=== PATIENT | male | born 1965 | race Caucasian/White ===

== ENCOUNTER 2020-12-12 00:06 | Emergency (ER) | payer OTHER ==
[~2020-12-12] VITALS: Ht 170.1 cm; Wt 70.3 kg
[~2020-12-12 00:06] MED LIST: BENTYL10 MG PO; VICODIN 5/500 505 MG PO; ZOFRAN ODT4 MG SL
[2020-12-12 00:52] LABS: BASO % 0.5 % (0.0-1.0); EOS # 0.1 10*3/uL (0.0-0.4); EOS % 0.8 % (1.0-4.0); HEMATOCRIT 46.7 % (42.0-52.0); LYMPH # 1.8 10*3/uL (1.3-4.4); LYMPH % 24.6 % (27.0-41.0); MEAN CELL VOLUME 96.1 fl (80.0-94.0); MEAN CORPUSCULAR HGB 32.5 pg (27.0-31.0); MEAN CORPUSCULAR HGB CONC 33.8 g/dl (33.0-37.0); MEAN PLATELET VOLUME 9.3 fl (9.6-12.3); MONO # 0.6 10*3/uL (0.1-1.0); MONO % 8.2 % (3.0-9.0); NEUT # 4.8 10*3/uL (2.3-7.9); NEUT % 65.4 % (47.0-73.0); PLATELET COUNT AUTOMATED 273 10*3/uL (130-400); RED BLOOD COUNT 4.86 10*6/uL (4.50-5.90); RED CELL DISTRI WIDTH 14.5 % (0-14.5); WHITE BLOOD COUNT 7.4 10*3/uL (4.8-10.8)
[2020-12-12 01:07] LABS: ALBUMIN 4.1 gm/dl (3.1-4.5); ALKALINE PHOSPHATASE 83 U/L (45-117); BUN 5 mg/dl (7-24); CHLORIDE 106 mmol/L (98-107); CREATININE 0.82 mg/dL (0.70-1.30); SGOT/AST 27 IU/L (3-35); SGPT/ALT 20 U/L (12-78); SODIUM 142 mmol/L (136-145)
[2020-12-12 01:08] LABS: ACETAMINOPHEN (TYLENOL) < 5.0 ug/ml (10-30)
[2020-12-12 02:54] LABS: BILIRUBIN Negative (Negative); BLOOD 1+ (Negative); CLARITY Clear (Clear); COLOR Yellow (Yellow); GLUCOSE Negative (Negative); KETONE Negative (Negative); LEUKO ESTERASE Negative (Negative); NITRITE Negative (Negative); SPECIFIC GRAVITY <= 1.005 (1.001-1.030); UROBILINOGEN 0.2 E.U./dl (0.0-1.0)
[2020-12-12 03:03] LABS: URINE AMPHETAMINES < 1000 (1000ng/ml); URINE BARBITURATES < 200 (200ng/ml); URINE BENZODIAZEPINES < 200 (200ng/ml); URINE CANNABINOIDS (THC) > 50 (50ng/ml); URINE COCAINE < 300 (300ng/ml); URINE METHADONE < 300 (300ng/ml); URINE OPIATES < 300 (300ng/ml)
[2020-12-12 03:15] LABS: WBC 0-2 wbc/hpf (0-5)
[2020-12-12 03:16] LABS: URINE PHENCYCLIDINE < 25 (25ng/ml)
[2020-12-12] MEDS ORDERED: CRESTOR10 M1 PO (17:35)
[2020-12-12] MEDS ORDERED: B-121000 MCG PO (17:37)
[2020-12-12] MEDS ORDERED: VITAMIN D325 MCG PO (17:38)
[2020-12-12] MEDS ORDERED: LISINOPRIL20 MG PO (17:38)
[2020-12-12] MEDS ORDERED: HYDR25T PO (17:38)
[2020-12-13] MEDS ORDERED: NORVASC5 MG PO (11:09)
== END 2020-12-12 11:12 | disposition home or self-care (01) ==
LOC: ED 00:06
PROVIDERS: Emergency Medicine
DX: F43.10 Post-traumatic stress disorder, unspecified (principal); Z98.890 Other specified postprocedural states; X58.XXXA Exposure to other specified factors, initial encounter; Y93.89 Activity, other specified; Y92.89 Other specified places as the place of occurrence of the external cause; Y99.8 Other external cause status

== ENCOUNTER 2020-12-12 14:33 | Observation (INO) | payer OTHER ==
[~2020-12-12] VITALS: Ht 170.1 cm; Wt 70.9 kg
[2020-12-12] VITALS (12 sets, daily range): BP systolic 145–200; BP diastolic 70–121
[2020-12-12] MEDS ORDERED: CRESTOR10 M1 PO (17:35)
[2020-12-12] MEDS ORDERED: B-121000 MCG PO (17:37)
[2020-12-12] MEDS ORDERED: VITAMIN D325 MCG PO (17:38)
[2020-12-12] MEDS ORDERED: HYDR25T PO (17:38)
[2020-12-12] MEDS ORDERED: LISINOPRIL20 MG PO (17:38)
[2020-12-13] VITALS: BP 142/75
[2020-12-13 06:04] LABS: ALBUMIN 3.7 gm/dl (3.1-4.5); BUN 11 mg/dl (7-24); CHLORIDE 103 mmol/L (98-107); CHOLESTEROL 183 mg/dL (<200); CREATININE 0.99 mg/dL (0.70-1.30); POTASSIUM 3.2 mmol/L (3.5-5.1); SGOT/AST 24 IU/L (3-35); SGPT/ALT 20 U/L (12-78); SODIUM 138 mmol/L (136-145); TOTAL PROTEIN 7.6 gm/dL (6.4-8.2); TRIGLYCERIDES 171 mg/dl (<150); VLDL CHOLESTEROL 34 mg/dL (6-40)
[2020-12-13 06:12] LABS: ALKALINE PHOSPHATASE 91 U/L (45-117); FREE T4 0.99 ng/dl (0.76-1.46); HDL CHOLESTEROL 64 mg/dl (40-60); LDL CHOLESTEROL 85 mg/dL (9-159)
[2020-12-13 06:18] LABS: BASO % 0.6 % (0.0-1.0); EOS # 0.1 10*3/uL (0.0-0.4); EOS % 1.5 % (1.0-4.0); HEMATOCRIT 49.6 % (42.0-52.0); LYMPH # 1.6 10*3/uL (1.3-4.4); LYMPH % 22.9 % (27.0-41.0); MEAN CORPUSCULAR HGB 32.6 pg (27.0-31.0); MEAN CORPUSCULAR HGB CONC 33.3 g/dl (33.0-37.0); MEAN PLATELET VOLUME 9.9 fl (9.6-12.3); MONO # 0.6 10*3/uL (0.1-1.0); MONO % 8.8 % (3.0-9.0); NEUT # 4.5 10*3/uL (2.3-7.9); NEUT % 65.9 % (47.0-73.0); PLATELET COUNT AUTOMATED 272 10*3/uL (130-400); RED BLOOD COUNT 5.06 10*6/uL (4.50-5.90); RED CELL DISTRI WIDTH 14.5 % (0-14.5); WHITE BLOOD COUNT 6.9 10*3/uL (4.8-10.8)
[2020-12-13 06:21] LABS: ACT PARTIAL THROMBO TIME 26.1 SECONDS (20.0-32.1)
[2020-12-13 08:00] VITALS: BP 143/87
[2020-12-13 08:08] LABS: VITAMIN D, 25-HYDROXY 15.2 ng/mL (30-100)
[2020-12-13] MEDS ORDERED: NORVASC5 MG PO (11:09)
== END 2020-12-13 13:14 | disposition home or self-care (01) ==
LOC: ED 14:33 → 4E 16:29 → EDHOLD 16:29 → 4E 17:25
PROVIDERS: Hospitalist; ADMIT Internal Medicine; ATTEND Internal Medicine
DX: I16.1 Hypertensive emergency (principal); L40.9 Psoriasis, unspecified; I10 Essential (primary) hypertension; F17.210 Nicotine dependence, cigarettes, uncomplicated; F12.90 Cannabis use, unspecified, uncomplicated; Z91.14 Patient's other noncompliance with medication regimen; Z71.6 Tobacco abuse counseling

== ENCOUNTER 2021-09-20 12:30 | Emergency (ER) | payer OTHER ==
[~2021-09-20] VITALS: Ht 170.1 cm; Wt 67.6 kg
[~2021-09-20 12:30] MED LIST changes: +B-121000 MCG PO; +CRESTOR10 M1 PO; +HYDR25T PO; +LISINOPRIL20 MG PO; +NORVASC5 MG PO; +VITAMIN D325 MCG PO
== END 2021-09-20 13:25 | disposition left against medical advice (07) ==
LOC: ED 12:30
DX: H57.89 Other specified disorders of eye and adnexa (principal); Z53.21 Procedure and treatment not carried out due to patient leaving prior to being seen by health care provider

== ENCOUNTER 2023-06-22 18:01 | Emergency (ER) | payer OTHER ==
[~2023-06-22] VITALS: Wt 71.7 kg
[2023-06-22] MEDS ORDERED: NAPROXEN250 MG PO (19:59)
== END 2023-06-22 20:04 | disposition home or self-care (01) ==
LOC: ED 18:01
DX: S93.402A Sprain of unspecified ligament of left ankle, initial encounter (principal); I10 Essential (primary) hypertension; Z98.890 Other specified postprocedural states; F12.90 Cannabis use, unspecified, uncomplicated; F17.200 Nicotine dependence, unspecified, uncomplicated; W11.XXXA Fall on and from ladder, initial encounter; Y93.75 Activity, martial arts; Y92.89 Other specified places as the place of occurrence of the external cause; Y99.8 Other external cause status